=== PATIENT | female | born 1955 | race Caucasian/White ===

== ENCOUNTER → 2018-01-18 11:49 | Outpatient (CLI) | payer OTHER, SELFPAY ==
--- NOTE | 2018-01-18 11:51 | DI.MG.S_ITS ---
BILATERAL DIGITAL SCREENING MAMMOGRAM 3D/2D WITH CAD: 01/18/2018 CLINICAL: Routine screening. Family history of breast cancer. Comparison is made to exams dated: 04/30/2016 mammogram, 04/06/2015 mammogram - [facility], and 03/08/2014 mammogram - [facility]. The tissue of both breasts is heterogeneously dense. This may lower the sensitivity of mammography. Current study was also evaluated with a Computer Aided Detection (CAD) system. No significant masses, calcifications, or other findings are seen in either breast. There has been no significant interval change. IMPRESSION: NEGATIVE There is no mammographic evidence of malignancy. A 1 year screening mammogram is recommended. This exam was interpreted at Station ID: [id number]. NOTE: For mammograms, a report in lay terms will be sent to the patient. Approximately 15% of breast malignancies will not be visualized mammographically. In the management of a palpable breast mass, a negative mammogram must not discourage biopsy of a clinically suspicious lesion. Electronically Signed By: Hailee vaz/josé luis:01/20/2018 11:13:38 letter sent: Normal Exam ACR BI-RADS Category 1: Negative 3341F
== END ==
PROVIDERS: Family Provider Specialist; PCP Specialist; Visit Provider Specialist
DX: Z12.31 Encounter for screening mammogram for malignant neoplasm of breast (principal); Z80.3 Family history of malignant neoplasm of breast
CPT/HCPCS: 77063; 77067

== ENCOUNTER → 2019-02-12 16:00 | Outpatient (CLI) | payer OTHER, SELFPAY ==
--- NOTE | 2019-02-12 | DI.MG.S_ITS ---
BILATERAL DIGITAL SCREENING MAMMOGRAM 3D/2D WITH CAD: 02/12/2019 CLINICAL: Routine screening. Family history of breast cancer. Comparison is made to exams dated: 01/18/2018 mammogram, 04/30/2016 mammogram, and 04/06/2015 mammogram - [facility]. The tissue of both breasts is heterogeneously dense. This may lower the sensitivity of mammography. Current study was also evaluated with a Computer Aided Detection (CAD) system. No significant masses, calcifications, or other findings are seen in either breast. There has been no significant interval change. IMPRESSION: NEGATIVE There is no mammographic evidence of malignancy. A 1 year screening mammogram is recommended. This exam was interpreted at Station ID: [id number]. NOTE: For mammograms, a report in lay terms will be sent to the patient. Approximately 15% of breast malignancies will not be visualized mammographically. In the management of a palpable breast mass, a negative mammogram must not discourage biopsy of a clinically suspicious lesion. Electronically Signed By: Anahi morley/josé luis:02/13/2019 10:42:47 letter sent: Normal Exam ACR BI-RADS Category 1: Negative 3341F
== END ==
PROVIDERS: Family Provider Specialist; PCP Family Medicine; Visit Provider Specialist
DX: Z12.31 Encounter for screening mammogram for malignant neoplasm of breast (principal); Z80.3 Family history of malignant neoplasm of breast
CPT/HCPCS: 77063; 77067

== ENCOUNTER → 2020-07-25 10:10 | Outpatient (CLI) | payer MEDICARE, OTHER, SELFPAY ==
--- NOTE | 2020-07-25 10:12 | DI.MG.S_ITS ---
BILATERAL DIGITAL SCREENING MAMMOGRAM 3D/2D WITH CAD: 07/25/2020 CLINICAL: Routine screening. Comparison is made to exams dated: 07/25/2020 mammogram, 02/12/2019 mammogram, 01/18/2018 mammogram, 04/30/2016 mammogram, and 04/06/2015 mammogram - [facility]. The tissue of both breasts is heterogeneously dense. This may lower the sensitivity of mammography. Current study was also evaluated with a Computer Aided Detection (CAD) system. No significant masses, calcifications, or other findings are seen in either breast. There has been no significant interval change. IMPRESSION: NEGATIVE There is no mammographic evidence of malignancy. A 1 year screening mammogram is recommended. This exam was interpreted at Station ID: [id number]. NOTE: For mammograms, a report in lay terms will be sent to the patient. Approximately 15% of breast malignancies will not be visualized mammographically. In the management of a palpable breast mass, a negative mammogram must not discourage biopsy of a clinically suspicious lesion. Electronically Signed By: Aidan scott/josé luis:07/25/2020 12:45:53 copy to: CHHAYA JUAREZ letter sent: Normal Exam ACR BI-RADS Category 1: Negative 3341F
== END ==
PROVIDERS: Family Provider Specialist; PCP Family Medicine; Referring Provider Family Medicine; Visit Provider Family Medicine
DX: Z12.31 Encounter for screening mammogram for malignant neoplasm of breast (principal)
CPT/HCPCS: 77063; 77067

== ENCOUNTER → 2020-10-04 15:20 | Outpatient (CLI) | payer MEDICARE, OTHER, SELFPAY ==
--- NOTE | 2020-10-04 15:23 | DI.RAD.S_ITS ---
PROCEDURE: XR WRIST LT MIN 3V INDICATIONS: fall TECHNIQUE: For views of the wrist were acquired. COMPARISON: None. FINDINGS: Bones: Minimally displaced, intra-articular distal radius fracture. Scaphoid view: Scaphoid is intact. Soft tissues: No suspicious soft tissue calcifications. IMPRESSION: Intra-articular distal radius fracture Dictated by: Marilyn Turk MD, PhD on 10/04/2020 at 16:44 Approved by: Marilyn Turk MD, PhD on 10/04/2020 at 16:44
--- NOTE | 2020-10-04 15:23 | DI.RAD.S_ITS ---
PROCEDURE: XR HAND LT MIN 3V INDICATIONS: fall TECHNIQUE: 3 views of the hand(s) acquired. COMPARISON: None. FINDINGS: Bones: Minimally displaced, intra-articular fracture of the distal radius. Carpal bones are normally aligned. No suspicious bony lesions. Soft tissues: No suspicious soft tissue calcifications. IMPRESSION: Minimally displaced, intra-articular distal radius fracture. Dictated by: Marilyn Turk MD, PhD on 10/04/2020 at 16:42 Approved by: Marilyn Turk MD, PhD on 10/04/2020 at 16:43
--- NOTE | 2020-10-04 15:23 | DI.RAD.S_ITS ---
PROCEDURE: XR FOREARM LT 2V INDICATIONS: fall TECHNIQUE: 2 views of the forearm were acquired. COMPARISON: None. FINDINGS: Bones: Minimally displaced distal radius fracture. Soft tissues: No suspicious soft tissue calcifications or masses. IMPRESSION: Distal radius fracture. Dictated by: Marilyn Turk MD, PhD on 10/04/2020 at 16:44 Approved by: Marilyn Turk MD, PhD on 10/04/2020 at 16:45
== END ==
PROVIDERS: Family Provider Specialist; PCP Family Medicine; Referring Provider Physician Assistant; Visit Provider Physician Assistant
DX: S52.572A Other intraarticular fracture of lower end of left radius, initial encounter for closed fracture (principal); R52 Pain, unspecified; W19.XXXA Unspecified fall, initial encounter
CPT/HCPCS: 73090; 73110; 73130

== ENCOUNTER 2020-12-07 13:45 | Outpatient (RCR) | payer MEDICARE, OTHER, SELFPAY ==
--- NOTE | 2020-11-23 16:00 | PT.OIE ---
Current Diagnoses Dizziness and giddiness (11/23/20) Past Medical History (Last Updated 02/03/18 @ 23:02 by Crystal Mak) Chicken pox History of colonoscopy (~2009) Osteopenia (~2007) Postnasal drip Rosacea (~1989) Tinnitus (~2010) Vertigo (~2011) Past Surgical History (Last Updated 02/03/18 @ 23:02 by Crystal Mak) Anesthesia History of colonoscopy (~2009) History of third molar tooth extraction (~1970) History of tonsillectomy (~1966) Visit Care Team Role Provider Type Sarah Jauregui MD Family Provider Physician Primary Care Provider Specialty: Family Practice Address: [address] [place] [address], [id number] Email: [email or web address] Nakul Hall MD Attending Provider Physician Referring Provider Specialty: Ear, Nose, Throat Address: [address] [place] [address], [address] Email: [email or web address] Physical Therapy Initial Evaluation PT-OP-A Visit Information Start: 11/23/20 15:30 Freq: Status: Active Protocol: Document 11/23/20 14:30 DCW (Rec: 11/23/20 15:43 DC [id number]) Out-Patient Physical Therapy Visit Information Visit Information Visit Type Initial Evaluation Visit Start Time 14:30 Visit Stop Time 15:20 Total Visit Minutes 50 Visit Number 1 Number of HANDYMAN Visits 0 Evaluation Information Evaluation Date 11/23/20 PT-OP-B Current Condition Start: 11/23/20 15:30 Freq: Status: Active Protocol: Document 11/23/20 14:30 DCW (Rec: 11/23/20 15:43 DC [id number]) Current Condition History of Current Condition Onset Date 10 year history with recent worsening Current Complaints subjective imbalance History of Current Condition Pt is a 65 year old female s/p ~10 year history of spontaneous imbalance that has been well compensated over the last ten years. Notes that when it first occurred, she was really limited and couldn 't drive for two months. Symptoms gradually improved, but has since had just occasional brief instances of stability. VNG at the time reported some right hypofunction. Recently, on , pt had a fall out hiking (completely unrelated to imbalance, slipped on a wet rock) and broke her left arm. She has had a rough recovery, and was told she may be experiencing CRPS in her arm. She has been very stressed overall, and notes that her symptoms of imbalance have been worse since all this occurred. Pt reports symptoms are typically provoked by fast head movements. Notes she has been out walking trails, but typically uses a trekking pole . Pt notes she has had fairly consistent tinnitus since original episode ten years ago , but it's not too bad. Feels she has had some decreased hearing on her R side, is having an audiogram tomorrow. Prior Treatments and Tests Per notes from Dr Hall, 2010 VNG showed mild R unilateral vestibular weakness Treatment Goals Patient/Caregiver Goals Symptom relief if possible. PT-OP-C Subjective Start: 11/23/20 15:30 Freq: Status: Active Protocol: Document 11/23/20 14:30 DCW (Rec: 11/23/20 15:43 DCW [id number]) OP-PT Subjective Patient Comments Patient Comments I'm not really sure this is even the best time to address this. I'm having a lot of problems with my arm since the fracture. Although maybe then it's the best time to address it, try to decrease my stress . Patient Reported Progress Same Patient Questionnaires Dizziness Handicap Inventory DHI Score 26% PT-OP-D Balance Start: 11/23/20 15:30 Freq: Status: Active Protocol: Document 11/23/20 14:30 DCW (Rec: 11/23/20 15:48 DCW [id number]) OP-PT Balance Assessment Sitting Balance Static Sitting Balance Ability Normal Dynamic Sitting Balance Ability Normal Standing Balance Static Standing Balance Ability Normal Dynamic Standing Balance Ability Normal Device Used None Rangel Fall Scale Copyright Permission PT-OP-O Vestibular Start: 11/23/20 15:30 Freq: Status: Active Protocol: Document 11/23/20 14:30 DCW (Rec: 11/23/20 15:48 DCW [id number]) Vestibular Assessment Screening Tests Vestibular Artery Screen Negative Auditory Tests Pollock Test Within normal limits Rinne Test Negative Air Conduction Results Equal Visual Testing Smooth Pursuits Horizontal WNL Smooth Pursuits Vertical WNL Saccades Horizontal WNL Saccades Vertical WNL Gaze Evoked Nystagmus With Fixation Negative Gaze Evoked Nystagmus Without Fixation Negative Heave Test Positive Left Thrust Head Positive Left Balwinder String Test WNL Convergence Test WNL Head Shake Negative Spontaneous Nystagmus Negative Vestibular Function Tests Fukuda Test WNL CTSIB Position 1 30+ seconds CTSIB Position 2 30+ seconds CTSIB Position 3 30+ seconds PT-OP-Q Treatments Start: 11/23/20 15:30 Freq: Status: Active Protocol: Document 11/23/20 14:30 DCW (Rec: 11/23/20 15:48 DCW [id number]) Neuro Re-Education Treatment Vestibular Rehabilitation Corrective Saccades Details Eyes, then head Distance From Target Arm length Speed as tolerated Position seated X2 Viewing Details Target, head moving opposite directions Distance From Target Arm length Speed as tolerated Position seated X1 Viewing Details Stationary target, moving head Distance From Target Arm length Speed as tolerated Position seated VOR Retraining Details Head and target move together Distance From Target Arm length Speed as tolerated Position seated PT-OP-T Assessment and Plan Start: 11/23/20 15:30 Freq: Status: Active Protocol: Document 11/23/20 14:30 DCW (Rec: 11/23/20 16:00 DCW [id number]) Physical Therapy Assessment Rehab Potential Rehabilitation Potential Good Evaluation Complexity Number of Personal Factors/Comorbidities 1-2 Number of Body Systems Impaired 3 Clinical Presentation at Evaluation Unstable Impairments Impairments Balance,Vestibular Goals One Impairment Pt scores 26% disability on Dizziness Handicap Inventory Short Term Goal (STG) Pt to score <10% disability on the DHI to show improved confidence and reduced fear of falling. STG Duration 12/23/20 Assessment Summary Assessment Pt presents with signs and symptoms of a well-compensated unilateral vestibular loss. This likely occurred 10.5 years ago when pt's symptoms began, and pt has done very well with adaptation/ compensation ever since. Pt balance currently unremarkable , and vestibular dysfunction appears to be minimal. There have been studies which strongly suggest stress increasing symptoms of prior vestibular loss, and pt admits high level of stress at the moment following her recent arm fracture and complicated recovery, and admits that her imbalance symptoms did begin following her fracture. Pt at this time was very happy to just receive some vestibulo- ocular exercises to work at on her own. Would like to work independently, on exercises and decreasing stress as her arm recovers, but would like to not discharge yet, so she has the option to return for follow-up if she does not progress as well as she would like. One strange result was that per prior VNG, she was diagnosed with right-sided hypofunction, and today her head impulse tests showed some mild left loss, however this may just be normal age-related decline in function. Physical Therapy Plan Frequency and Duration Frequency of Treatment as needed Duration of Treatment Two months Plan of Care Start Date 11/23/20 Plan of Care End Date 01/23/21 Therapeutic Interventions Therapeutic Interventions Balance Training,Canalithic Repositioning,Neuromuscular Re -education,Therapeutic Activities,Therapeutic Exercises,Vestibular Rehabilitation Next Visit Focus/Plan Next Note Type Treatment Note Next Visit Plan Vestibular rehab
--- NOTE | 2020-11-23 16:00 | PT.OPPOC ---
Physical, Occupational & Speech Therapy At [facility] Current Diagnoses Dizziness and giddiness (11/23/20) Visit Care Team Role Provider Type Sarah Jauregui MD Family Provider Physician Primary Care Provider Specialty: Family Practice Address: [address] [place] [address], [address] Email: [email or web address] Nakul Hall MD Attending Provider Physician Referring Provider Specialty: Ear, Nose, Throat Address: [address] [place] [address], [address] Email: [email or web address] Plan Of Care PT-OP-T Assessment and Plan Start: 11/23/20 15:30 Freq: Status: Active Protocol: Document 11/23/20 14:30 DCW (Rec: 11/23/20 16:00 DCW [id number]) Physical Therapy Assessment Rehab Potential Rehabilitation Potential Good Evaluation Complexity Number of Personal Factors/Comorbidities 1-2 Number of Body Systems Impaired 3 Clinical Presentation at Evaluation Unstable Impairments Impairments Balance,Vestibular Goals One Impairment Pt scores 26% disability on Dizziness Handicap Inventory Short Term Goal (STG) Pt to score <10% disability on the DHI to show improved confidence and reduced fear of falling. STG Duration 12/23/20 Assessment Summary Assessment Pt presents with signs and symptoms of a well-compensated unilateral vestibular loss. This likely occurred 10.5 years ago when pt's symptoms began, and pt has done very well with adaptation/ compensation ever since. Pt balance currently unremarkable , and vestibular dysfunction appears to be minimal. There have been studies which strongly suggest stress increasing symptoms of prior vestibular loss, and pt admits high level of stress at the moment following her recent arm fracture and complicated recovery, and admits that her imbalance symptoms did begin following her fracture. Pt at this time was very happy to just receive some vestibulo- ocular exercises to work at on her own. Would like to work independently, on exercises and decreasing stress as her arm recovers, but would like to not discharge yet, so she has the option to return for follow-up if she does not progress as well as she would like. One strange result was that per prior VNG, she was diagnosed with right-sided hypofunction, and today her head impulse tests showed some mild left loss, however this may just be normal age-related decline in function. Physical Therapy Plan Frequency and Duration Frequency of Treatment as needed Duration of Treatment Two months Plan of Care Start Date 11/23/20 Plan of Care End Date 01/23/21 Therapeutic Interventions Therapeutic Interventions Balance Training,Canalithic Repositioning,Neuromuscular Re -education,Therapeutic Activities,Therapeutic Exercises,Vestibular Rehabilitation Next Visit Focus/Plan Next Note Type Treatment Note Next Visit Plan Vestibular rehab Plan of Care Dates Plan of Care Start Date 11/23/20 Plan of Care End Date 01/23/21 Electronically Signed by: Huang Bui, PT 11/23/20 1600 Please Sign and Return: I have reviewed this Plan of Care and certify that the skilled therapy services above are required to meet the patient?s needs. Physician Signature Date Printed Name and Credentials Clinical Instructor Signature Printed Name and Credentials
--- NOTE | 2020-12-07 14:30 | PT.OTN ---
Current Diagnoses Dizziness and giddiness (12/07/20) Physical Therapy Treatment Note PT-OP-A Visit Information Start: 11/23/20 15:30 Freq: Status: Active Protocol: Document 12/07/20 13:45 DCW (Rec: 12/07/20 14:30 DCW [id number]) Out-Patient Physical Therapy Visit Information Visit Information Visit Type Treatment Note Visit Start Time 13:45 Visit Stop Time 14:15 Total Visit Minutes 30 Visit Number 2 Number of REPAIRING CALIBRATOR Visits 0 Evaluation Information Evaluation Date 11/23/20 PT-OP-B Current Condition Start: 11/23/20 15:30 Freq: Status: Active Protocol: Document 11/23/20 14:30 DCW (Rec: 11/23/20 15:43 DCW [id number]) Current Condition History of Current Condition Onset Date 10 year history with recent worsening Current Complaints subjective imbalance History of Current Condition Pt is a 65 year old female s/p ~10 year history of spontaneous imbalance that has been well compensated over the last ten years. Notes that when it first occurred, she was really limited and couldn 't drive for two months. Symptoms gradually improved, but has since had just occasional brief instances of stability. VNG at the time reported some right hypofunction. Recently, on , pt had a fall out hiking (completely unrelated to imbalance, slipped on a wet rock) and broke her left arm. She has had a rough recovery, and was told she may be experiencing CRPS in her arm. She has been very stressed overall, and notes that her symptoms of imbalance have been worse since all this occurred. Pt reports symptoms are typically provoked by fast head movements. Notes she has been out walking trails, but typically uses a trekking pole . Pt notes she has had fairly consistent tinnitus since original episode ten years ago , but it's not too bad. Feels she has had some decreased hearing on her R side, is having an audiogram tomorrow. Prior Treatments and Tests Per notes from Dr Hall, 2010 VNG showed mild R unilateral vestibular weakness Treatment Goals Patient/Caregiver Goals Symptom relief if possible. PT-OP-C Subjective Start: 11/23/20 15:30 Freq: Status: Active Protocol: Document 12/07/20 13:45 DCW (Rec: 12/07/20 14:30 DCW [id number]) OP-PT Subjective Patient Comments Patient Comments Pt suddenly became symptomatic with positional vertigo over the weekend, has been attempting self Erica's with minimal success. PT-OP-D Balance Start: 11/23/20 15:30 Freq: Status: Active Protocol: Document 11/23/20 14:30 DCW (Rec: 11/23/20 15:48 DCW [id number]) OP-PT Balance Assessment Sitting Balance Static Sitting Balance Ability Normal Dynamic Sitting Balance Ability Normal Standing Balance Static Standing Balance Ability Normal Dynamic Standing Balance Ability Normal Device Used None Rangel Fall Scale Copyright Permission PT-OP-O Vestibular Start: 11/23/20 15:30 Freq: Status: Active Protocol: Document 11/23/20 14:30 DCW (Rec: 11/23/20 15:48 DCW [id number]) Vestibular Assessment Screening Tests Vestibular Artery Screen Negative Auditory Tests Pollock Test Within normal limits Rinne Test Negative Air Conduction Results Equal Visual Testing Smooth Pursuits Horizontal WNL Smooth Pursuits Vertical WNL Saccades Horizontal WNL Saccades Vertical WNL Gaze Evoked Nystagmus With Fixation Negative Gaze Evoked Nystagmus Without Fixation Negative Heave Test Positive Left Thrust Head Positive Left Balwinder String Test WNL Convergence Test WNL Head Shake Negative Spontaneous Nystagmus Negative Vestibular Function Tests Fukuda Test WNL CTSIB Position 1 30+ seconds CTSIB Position 2 30+ seconds CTSIB Position 3 30+ seconds PT-OP-Q Treatments Start: 11/23/20 15:30 Freq: Status: Active Protocol: Document 12/07/20 13:45 DCW (Rec: 12/07/20 14:30 DCW [id number]) Self-Care/Home Management Treatment Education Other Education BPPV information, treatment options Canalithic Repositioning BPPV Treatment Erica Reps x1 Comments Modified Erica PT-OP-T Assessment and Plan Start: 11/23/20 15:30 Freq: Status: Active Protocol: Document 12/07/20 13:45 DCW (Rec: 12/07/20 14:30 DCW [id number]) Physical Therapy Assessment Goals One Impairment Pt scores 26% disability on Dizziness Handicap Inventory Short Term Goal (STG) Pt to score <10% disability on the DHI to show improved confidence and reduced fear of falling. STG Duration 12/23/20 Assessment Summary Assessment After presenting two weeks ago with well-compensated unilateral vestibular hypofunction, this past weekend, pt began having symptoms strongly suggestive of BPPV. She had called into the clinic and discussed appropriate treatment with this therapist, and attempted self-Erica. Today's testing was entirely negative for BPPV , so pt may have been successful with her treatment this AM. Spent an extended time period today discussing symptoms and treatment options for BPPV. Pt should continue with HEP exercises for ongoing unilateral hypofunction. Physical Therapy Plan Frequency and Duration Frequency of Treatment as needed Duration of Treatment Two months Plan of Care Start Date 11/23/20 Plan of Care End Date 01/23/21 Therapeutic Interventions Therapeutic Interventions Balance Training,Canalithic Repositioning,Neuromuscular Re -education,Therapeutic Activities,Therapeutic Exercises,Vestibular Rehabilitation Next Visit Focus/Plan Next Note Type Treatment Note Next Visit Plan Vestibular rehab
--- NOTE | 2021-05-25 10:13 | PT.OPDS ---
Current Diagnoses Dizziness and giddiness (12/07/20) Visit Care Team Role Provider Type Sarah Jauregui MD Family Provider Physician Primary Care Provider Specialty: Family Practice Address: [facility], [place], [address] Email: [email or web address] Nakul Hall MD Attending Provider Physician Referring Provider Specialty: Ear, Nose, Throat Address: [address] [place] [address], [address] Email: [email or web address] Visit Number Visit Number 2 Discharge Summary PT-OP-B Current Condition Start: 11/23/20 15:30 Freq: Status: Active Protocol: Document 11/23/20 14:30 DCW (Rec: 11/23/20 15:43 DCW [id number]) Current Condition History of Current Condition Onset Date 10 year history with recent worsening Current Complaints subjective imbalance History of Current Condition Pt is a 65 year old female s/p ~10 year history of spontaneous imbalance that has been well compensated over the last ten years. Notes that when it first occurred, she was really limited and couldn 't drive for two months. Symptoms gradually improved, but has since had just occasional brief instances of stability. VNG at the time reported some right hypofunction. Recently, on , pt had a fall out hiking (completely unrelated to imbalance, slipped on a wet rock) and broke her left arm. She has had a rough recovery, and was told she may be experiencing CRPS in her arm. She has been very stressed overall, and notes that her symptoms of imbalance have been worse since all this occurred. Pt reports symptoms are typically provoked by fast head movements. Notes she has been out walking trails, but typically uses a trekking pole . Pt notes she has had fairly consistent tinnitus since original episode ten years ago , but it's not too bad. Feels she has had some decreased hearing on her R side, is having an audiogram tomorrow. Prior Treatments and Tests Per notes from Dr Hall, 2010 VNG showed mild R unilateral vestibular weakness Treatment Goals Patient/Caregiver Goals Symptom relief if possible. PT-OP-C Subjective Start: 11/23/20 15:30 Freq: Status: Active Protocol: Document 12/07/20 13:45 DCW (Rec: 12/07/20 14:30 DCW [id number]) OP-PT Subjective Patient Comments Patient Comments Pt suddenly became symptomatic with positional vertigo over the weekend, has been attempting self Erica's with minimal success. PT-OP-D Balance Start: 11/23/20 15:30 Freq: Status: Active Protocol: Document 11/23/20 14:30 DCW (Rec: 11/23/20 15:48 DCW [id number]) OP-PT Balance Assessment Sitting Balance Static Sitting Balance Ability Normal Dynamic Sitting Balance Ability Normal Standing Balance Static Standing Balance Ability Normal Dynamic Standing Balance Ability Normal Device Used None Rangel Fall Scale Copyright Permission PT-OP-O Vestibular Start: 11/23/20 15:30 Freq: Status: Active Protocol: Document 11/23/20 14:30 DCW (Rec: 11/23/20 15:48 DCW [id number]) Vestibular Assessment Screening Tests Vestibular Artery Screen Negative Auditory Tests Pollock Test Within normal limits Rinne Test Negative Air Conduction Results Equal Visual Testing Smooth Pursuits Horizontal WNL Smooth Pursuits Vertical WNL Saccades Horizontal WNL Saccades Vertical WNL Gaze Evoked Nystagmus With Fixation Negative Gaze Evoked Nystagmus Without Fixation Negative Heave Test Positive Left Thrust Head Positive Left Balwinder String Test WNL Convergence Test WNL Head Shake Negative Spontaneous Nystagmus Negative Vestibular Function Tests Fukuda Test WNL CTSIB Position 1 30+ seconds CTSIB Position 2 30+ seconds CTSIB Position 3 30+ seconds PT-OP-T Assessment and Plan Start: 11/23/20 15:30 Freq: Status: Active Protocol: Document 05/25/21 10:12 DCW (Rec: 05/25/21 10:13 DCW [id number]) Physical Therapy Assessment Assessment Summary Assessment Pt was to call in as her vestibular sympoms required, however now has not been seen in five months. Pt will be discharged from skilled PT at this time, will require a new referral in order to return Physical Therapy Plan Discharge Physical Therapy Discharge Reasons No Longer Attending PT Next Visit Focus/Plan Next Note Type Discharge Summary
== END 2021-05-29 13:42 ==
LOC: PHYS 13:45
PROVIDERS: Family Provider Family Medicine; PCP Family Medicine; Referring Provider Otolaryngology; Visit Provider Otolaryngology
DX: R42 Dizziness and giddiness (principal)
CPT/HCPCS: 95992; 97112; 97162; 97535

== ENCOUNTER → 2021-09-07 09:30 | Outpatient (CLI) | payer MEDICARE, OTHER, SELFPAY ==
[2021-09-07 10:25] LABS: Add Manual Diff / Slide Review NO; Basophils Absolute Auto 0 /uL (0-100); Basophils Percent Auto 0.7 % (0-2); Eosinophils Absolute Auto 100 /uL (0-450); Eosinophils Percent Auto 1.6 % (2-4); Hematocrit 39.3 % (36-46); Hemoglobin 13.8 g/dL (12.0-16.0); Lymphocytes Absolute Auto 2000 /uL (1100-4500); Lymphocytes Percent Auto 42.7 % (25-40); Mean Corpuscular HGB Conc 35.1 % (30-36); Mean Corpuscular Hemoglobin 34.5 PG (26-34); Mean Corpuscular Volume 98.3 fL (80-100); Monocytes Absolute Auto 500 /uL (0-900); Monocytes Percent Auto 9.6 % (3-14); Neutrophils Absolute Auto 2100 /uL (1500-7000); Neutrophils Percent Auto 45.4 % (50-75); Platelet Count 209 X10^3/uL (150-400); Red Blood Cell Count 3.99 X10^6/uL (4.0-5.2); Red Cell Distribution Width 12.6 % (11.6-14.8); White Blood Cell Count 4.7 X10^3/uL (4.5-11.0)
[2021-09-07 10:33] LABS: Hemoglobin A1C% w Est Avg Glu 5.1 % (4.0-6.0)
[2021-09-07 10:43] LABS: Alanine Aminotransferase 25 IU/L (<35); Albumin 4.3 g/dL (3.5-5.0); Albumin Globulin Ratio 1.5 (1.0-2.8); Alkaline Phosphatase 90 U/L (38-126); Aspartate Aminotransferase 28 IU/L (14-36); BUN Creatinine Ratio 17.1 (6-22); Blood Urea Nitrogen 13 mg/dL (7-17); Calcium 9.7 mg/dL (8.4-10.2); Carbon Dioxide 30 mmol/L (22-32); Chloride 103 mmol/L (98-107); Cholesterol 232 mg/dL (140-199); Estimated Glomerular Filt Rate > 60 mL/min (>60); Globulin 2.8 g/dL (1.7-4.1); Glucose 94 mg/dL (80-110); HDL Cholesterol 86 mg/dL (40-60); HEMOLYSIS < 15 (0-50); LDL Cholesterol Calculated 129 mg/dL (<100); Potassium 4.2 mmol/L (3.4-5.1); Sodium 138 mmol/L (137-145); Total Protein 7.1 g/dL (6.3-8.2); Triglycerides 85 mg/dL (35-150)
[2021-09-07 19:18] LABS: Thyroid Stimulating Hormone 5.59 uIU/mL (0.47-4.68)
== END ==
PROVIDERS: Family Provider Family Medicine; PCP Family Medicine; Referring Provider Physician Assistant; Visit Provider Physician Assistant
DX: G90.519 Complex regional pain syndrome I of unspecified upper limb (principal); Z13.1 Encounter for screening for diabetes mellitus; Z11.59 Encounter for screening for other viral diseases; M85.80 Other specified disorders of bone density and structure, unspecified site; Z13.220 Encounter for screening for lipoid disorders; Z13.6 Encounter for screening for cardiovascular disorders; Z13.0 Encounter for screening for diseases of the blood and blood-forming organs and certain disorders involving the immune mechanism; E55.9 Vitamin D deficiency, unspecified; E78.5 Hyperlipidemia, unspecified
CPT/HCPCS: 36415; 80053; 80061; 82306; 83036; 84443; 85025; 87522

== ENCOUNTER → 2021-11-08 11:46 | Outpatient (CLI) | payer MEDICARE, OTHER, SELFPAY | PROVIDERS: Family Provider Family Medicine; PCP Family Medicine; Referring Provider Physician Assistant; Visit Provider Physician Assistant | DX: M81.0 Age-related osteoporosis without current pathological fracture (principal); Z13.820 Encounter for screening for osteoporosis; S62.109A Fracture of unspecified carpal bone, unspecified wrist, initial encounter for closed fracture; Z78.0 Asymptomatic menopausal state | CPT/HCPCS: 77080 ==

== ENCOUNTER → 2022-01-17 12:56 | Outpatient (CLI) | payer MEDICARE, OTHER, SELFPAY ==
--- NOTE | 2022-01-17 12:57 | DI.MG.S_ITS ---
BILATERAL DIGITAL SCREENING MAMMOGRAM 3D/2D WITH CAD: 01/17/2022 CLINICAL: Routine screening. Family history of breast cancer. Comparison is made to exams dated: 07/25/2020 mammogram, 02/12/2019 mammogram, and 01/18/2018 mammogram - [facility]. Both breasts are heterogeneously dense, which may obscure small masses (category c / 51-75% glandular tissue). Current study was also evaluated with a Computer Aided Detection (CAD) system. No significant masses, calcifications, or other findings are seen in either breast. There has been no significant interval change. IMPRESSION: NEGATIVE There is no mammographic evidence of malignancy. A 1 year screening mammogram is recommended. Based on the Tyrer Cuzick model (a risk assessment model) the patient's lifetime risk is 11.0% and her 10 year risk is 5.8%. According to the ACR, ACS, and NCCN guidelines, an annual breast MRI exam along with mammogram is recommended if the patient's lifetime risk is 20% or greater. This exam was interpreted at Station ID: [id number]. NOTE: For mammograms, a report in lay terms will be sent to the patient. Approximately 15% of breast malignancies will not be visualized mammographically. In the management of a palpable breast mass, a negative mammogram must not discourage biopsy of a clinically suspicious lesion. Electronically Signed By: Hailee vaz/josé luis:01/17/2022 16:44:20 copy to: CHHAYA JUAREZ letter sent: Normal Exam ACR BI-RADS Category 1: Negative 3341F
== END ==
PROVIDERS: Family Provider Family Medicine; PCP Family Medicine; Referring Provider Family Medicine; Visit Provider Family Medicine
DX: Z12.31 Encounter for screening mammogram for malignant neoplasm of breast (principal); Z80.3 Family history of malignant neoplasm of breast
CPT/HCPCS: 77063; 77067

== ENCOUNTER → 2022-02-01 14:09 | Outpatient (CLI) | payer MEDICARE, OTHER, SELFPAY ==
[2022-02-01 15:56] LABS: Alkaline Phosphatase 97 U/L (38-126); Phosphorous 3.3 mg/dL (2.8-4.1)
[2022-02-01 16:13] LABS: Free T4, Direct Thyroxine 1.27 ng/dL (0.78-2.19)
[2022-02-02 08:22] LABS: Thyroid Peroxidase Antibodies 220 IU/mL (0-34)
[2022-02-02 10:32] LABS: Parathyroid Hormone Int 53 pg/mL (15-65)
== END ==
PROVIDERS: Family Provider Family Medicine; PCP Family Medicine; Referring Provider Internal Medicine Endocrinology, Diabetes & Metabolism; Visit Provider Internal Medicine Endocrinology, Diabetes & Metabolism
DX: E03.8 Other specified hypothyroidism (principal); M81.0 Age-related osteoporosis without current pathological fracture
CPT/HCPCS: 36415; 83970; 84075; 84100; 84439; 84443; 86376

== ENCOUNTER → 2022-02-07 12:02 | Outpatient (CLI) | payer MEDICARE, OTHER, SELFPAY ==
[2022-02-08 12:32] LABS: Fecal Immunochemical Test Negative (Negative)
== END ==
PROVIDERS: Physician Assistant; Family Provider Family Medicine; PCP Family Medicine; Referring Provider Family Medicine; Visit Provider Family Medicine
DX: Z12.11 Encounter for screening for malignant neoplasm of colon (principal)
CPT/HCPCS: 82274

== ENCOUNTER → 2022-09-26 08:36 | Outpatient (CLI) | payer MEDICARE, OTHER, SELFPAY ==
[2022-09-26 10:03] LABS: Alanine Aminotransferase 15 IU/L (<35); Albumin 4.2 g/dL (3.5-5.0); Albumin Globulin Ratio 1.3 (1.0-2.8); Alkaline Phosphatase 85 U/L (38-126); Aspartate Aminotransferase 21 IU/L (14-36); BUN Creatinine Ratio 24.3 (6-22); Bilirubin Total 0.8 mg/dL (0.2-1.3); Blood Urea Nitrogen 18 mg/dL (7-17); Calcium 9.5 mg/dL (8.4-10.2); Carbon Dioxide 27 mmol/L (22-32); Chloride 104 mmol/L (98-107); Estimated Glomerular Filt Rate > 60 mL/min (>60); Globulin 3.2 g/dL (1.7-4.1); Glucose 96 mg/dL (80-110); HEMOLYSIS < 15 (0-50); Potassium 3.7 mmol/L (3.4-5.1); Sodium 138 mmol/L (137-145); Total Protein 7.4 g/dL (6.3-8.2)
[2022-09-26 10:08] LABS: High Sensitivity CRP - Cardiac 1.6 mg/L (1.0-3.0)
[2022-09-26 10:13] LABS: Vitamin D 25 Hydroxy (D3) 59.4 ng/mL (30.0-100.0)
[2022-09-26 10:24] LABS: Free T3, Triiodothyronine Free 4.32 pg/mL (2.77-5.27)
[2022-09-26 10:33] LABS: Add Manual Diff / Slide Review NO; Basophils Absolute Auto 0 /uL (0-100); Basophils Percent Auto 0.5 % (0-2); Eosinophils Absolute Auto 100 /uL (0-450); Eosinophils Percent Auto 1.4 % (2-4); Hematocrit 38.7 % (36-46); Hemoglobin 13.5 g/dL (12.0-16.0); Lymphocytes Absolute Auto 2000 /uL (1100-4500); Lymphocytes Percent Auto 46.3 % (25-40); Mean Corpuscular HGB Conc 34.9 % (30-36); Mean Corpuscular Hemoglobin 34.2 PG (26-34); Mean Corpuscular Volume 98.1 fL (80-100); Monocytes Absolute Auto 400 /uL (0-900); Monocytes Percent Auto 10.2 % (3-14); Neutrophils Absolute Auto 1800 /uL (1500-7000); Neutrophils Percent Auto 41.6 % (50-75); Platelet Count 179 X10^3/uL (150-400); Red Blood Cell Count 3.94 X10^6/uL (4.0-5.2); Red Cell Distribution Width 12.5 % (11.6-14.8); White Blood Cell Count 4.3 X10^3/uL (4.5-11.0)
[2022-09-26 10:34] LABS: Estradiol, Total 16.8 pg/mL
[2022-09-26 10:37] LABS: Thyroid Stimulating Hormone 6.43 uIU/mL (0.47-4.68)
[2022-09-26 22:30] LABS: Homocysteine 12.7 umol/L (0.0-17.2); Thyroid Peroxidase Antibodies 216 IU/mL (0-34)
[2022-09-27 19:09] LABS: Deamidated Gliadin Ab IgA 4 units (0-19); Deamidated Gliadin Ab IgG 4 units (0-19); Immunoglobulin A,Qn 163 mg/dL (87-352); t-Transglutaminase IgA <2 U/mL (0-3)
[2022-10-01 01:16] LABS: C-Telopeptide, Serum 514 pg/mL (.)
== END ==
PROVIDERS: Family Provider Family Medicine; PCP Family Medicine; Referring Provider Internal Medicine Endocrinology, Diabetes & Metabolism; Visit Provider Internal Medicine Endocrinology, Diabetes & Metabolism
DX: M81.0 Age-related osteoporosis without current pathological fracture (principal); D64.9 Anemia, unspecified; E78.5 Hyperlipidemia, unspecified; E55.9 Vitamin D deficiency, unspecified; E03.9 Hypothyroidism, unspecified
CPT/HCPCS: 36415; 80053; 82306; 82523; 82627; 82670; 82784; 83090; 83516; 84439; 84443; 84481; 85025; 86140; 86376

== ENCOUNTER → 2022-11-02 09:46 | Outpatient (CLI) | payer MEDICARE, OTHER, SELFPAY ==
[2022-11-02 11:42] LABS: Calcium 24 Hour Urine 224 mg/day (100-300); Calcium Urine Random 10.4 mg/dL; Collection Time Urine 24 Hours; Total Volume Urine 2150 mL
== END ==
PROVIDERS: Family Provider Family Medicine; PCP Family Medicine; Referring Provider Family Medicine; Visit Provider Family Medicine
DX: M81.0 Age-related osteoporosis without current pathological fracture (principal)
CPT/HCPCS: 82340

== ENCOUNTER → 2022-12-21 | Outpatient (CLI) | payer MEDICARE, OTHER, SELFPAY ==
--- NOTE | 2022-12-21 12:13 | DI.RAD.S_ITS ---
Bone Density Report Name: SOCO SOLORIO V Age: 67 Sex: Female Ethnicity: White Date of : 1955 Indication: postmenopausal osteoporosis; monitoring treatment; Referring Provider: DAYANARA BYRD Study: Bone densitometry was performed. Exam Date: December 21, 2022 Accession number: [id number] Bone Density: Region BMD T-score Z-score Classification AP Spine(L1, L2, L4) 0.628 -3.7 -1.7 Osteoporosis Femoral Neck (Left) 0.530 -2.9 -1.2 Osteoporosis Total Hip (Left) 0.566 -3.1 -1.7 Osteoporosis Femoral Neck (Right) 0.504 -3.1 -1.4 Osteoporosis Total Hip (Right) 0.577 -3.0 -1.6 Osteoporosis Total Hip Mean 0.572 -3.1 -1.7 Osteoporosis Total Forearm (Left) 0.305 -5.1 -3.3 Osteoporosis 1/3 Forearm (Left) 0.382 -5.2 -3.3 Osteoporosis UD Forearm (Left) 0.257 -3.2 -1.9 Osteoporosis World Health Organization criteria for BMD impression classify patients as: Normal (T-score at or above -1.0), Osteopenia (T-score between -1.0 and -2.5), or Osteoporosis (T-score at or below -2.5). 10-year Fracture Risk: FRAX not reported because: Some T-score for Spine Total or Hip Total or Femoral Neck at or below -2.5 Treated for osteoporosis Previous Exams: -- Region Exam Age BMD T-score BMD Change BMD Change Date g/cm2 vs Baseline vs Previous -- AP Spine (L1-L2,L4) 12/21/2022 67 0.628 -3.7 0.023 (3.8%)* 0.023 (3.8%)* 11/08/2021 66 0.605 -3.9 Total Hip(Left) 12/21/2022 67 0.566 -3.1 -0.025 (-4.3%) -0.025 (-4.3%) 11/08/2021 66 0.592 -2.9 Total Hip(Right) 12/21/2022 67 0.577 -3.0 -0.004 (-0.7%) -0.004 (-0.7%) 11/08/2021 66 0.582 -3.0 -- *Denotes significance at 95% confidence level, LSC for AP Spine = 0.022 g/cm2, LSC for Total Hip = 0.027 g/cm2 Impression: The patient has osteoporosis, based on the Total Spine T-score. No significant bone loss was observed. Discussion: PATIENT UNDER TREATMENT WITH NO SIGNIFICANT BMD LOSS SINCE LAST EXAM. In an untreated patient, BMD typically declines with age. A lack of decline or gain is usually a sign that treatment is efficacious and fracture risk is reduced. It is important to ask patients whether they are taking their medications and to encourage continued and appropriate compliance with their osteoporosis therapies to reduce fracture risk. It is also important to review their risk factors and encourage appropriate calcium and vitamin D intakes, exercise, fall prevention and other lifestyle measures. Follow-Up: Consider a repeat BMD and Vertebral Fracture Assessment (VFA) exam in 2 years or sooner if medically necessary, to reassess this patient's status. Reported by: SAMUEL HICKMAN M.D. on 12/21/2022 12:43:00 PM.
== END ==
PROVIDERS: Family Provider Family Medicine; PCP Family Medicine; Referring Provider Family Medicine; Visit Provider Family Medicine
DX: M81.0 Age-related osteoporosis without current pathological fracture (principal); E55.9 Vitamin D deficiency, unspecified
CPT/HCPCS: 77080; 77081

== ENCOUNTER → 2023-03-21 14:00 | Outpatient (CLI) | payer MEDICARE, OTHER, SELFPAY ==
--- NOTE | 2023-03-21 | DI.MG.S_ITS ---
BILATERAL DIGITAL SCREENING MAMMOGRAM 3D/2D WITH CAD: 03/21/2023 CLINICAL: Routine screening. Family history of breast cancer. Comparison is made to exams dated: 01/17/2022 mammogram, 07/25/2020 mammogram, and 02/12/2019 mammogram - [facility]. Both breasts are heterogeneously dense, which may obscure small masses (category c / 51-75% glandular tissue). Current study was also evaluated with a Computer Aided Detection (CAD) system. No significant masses, calcifications, or other findings are seen in either breast. There has been no significant interval change. IMPRESSION: NEGATIVE There is no mammographic evidence of malignancy. A 1 year screening mammogram is recommended. Based on the Tyrer Cuzick model (a risk assessment model) the patient's lifetime risk is 10.4% and her 10 year risk is 5.8%. According to the ACR, ACS, and NCCN guidelines, an annual breast MRI exam along with mammogram is recommended if the patient's lifetime risk is 20% or greater. This exam was interpreted at Station ID: [id number]. NOTE: For mammograms, a report in lay terms will be sent to the patient. Approximately 15% of breast malignancies will not be visualized mammographically. In the management of a palpable breast mass, a negative mammogram must not discourage biopsy of a clinically suspicious lesion. Electronically Signed By: Aidan scott/josé luis:03/21/2023 17:15:20 copy to: CHHAYA JUAREZ letter sent: Normal Exam ACR BI-RADS Category 1: Negative 3341F
== END ==
PROVIDERS: Family Provider Family Medicine; PCP Family Medicine; Referring Provider Family Medicine; Visit Provider Family Medicine
DX: Z12.31 Encounter for screening mammogram for malignant neoplasm of breast (principal); Z80.3 Family history of malignant neoplasm of breast
CPT/HCPCS: 77063; 77067

== ENCOUNTER → 2023-07-11 09:32 | Outpatient (CLI) | payer MEDICARE, OTHER, SELFPAY ==
[2023-07-11 10:27] LABS: Add Manual Diff / Slide Review NO; Basophils Absolute Auto 0 /uL (0-100); Basophils Percent Auto 0.5 % (0-2); Eosinophils Absolute Auto 100 /uL (0-450); Eosinophils Percent Auto 2.1 % (2-4); Hematocrit 38.1 % (36-46); Hemoglobin 13.1 g/dL (12.0-16.0); Lymphocytes Absolute Auto 1800 /uL (1100-4500); Lymphocytes Percent Auto 43.4 % (25-40); Mean Corpuscular HGB Conc 34.5 % (30-36); Mean Corpuscular Hemoglobin 34.5 PG (26-34); Mean Corpuscular Volume 99.8 fL (80-100); Monocytes Absolute Auto 400 /uL (0-900); Monocytes Percent Auto 10.5 % (3-14); Neutrophils Absolute Auto 1800 /uL (1500-7000); Neutrophils Percent Auto 43.5 % (50-75); Platelet Count 181 X10^3/uL (150-400); Red Blood Cell Count 3.81 X10^6/uL (4.0-5.2); Red Cell Distribution Width 12.9 % (11.6-14.8); White Blood Cell Count 4.1 X10^3/uL (4.5-11.0)
[2023-07-11 11:13] LABS: Alanine Aminotransferase 16 IU/L (<35); Albumin 4.3 g/dL (3.5-5.0); Albumin Globulin Ratio 1.6 (1.0-2.8); Alkaline Phosphatase 85 U/L (38-126); Aspartate Aminotransferase 23 IU/L (14-36); BUN Creatinine Ratio 22.5 (6-22); Bilirubin Total 0.7 mg/dL (0.2-1.3); Blood Urea Nitrogen 16 mg/dL (7-17); Calcium 9.9 mg/dL (8.4-10.2); Carbon Dioxide 27 mmol/L (22-32); Chloride 105 mmol/L (98-107); Cholesterol 238 mg/dL (140-199); Estimated Glomerular Filt Rate > 60 mL/min (>60); Globulin 2.7 g/dL (1.7-4.1); Glucose 94 mg/dL (80-110); HDL Cholesterol 79 mg/dL (40-60); HEMOLYSIS < 15 (0-50); LDL Cholesterol Calculated 141 mg/dL (<100); Potassium 4.2 mmol/L (3.4-5.1); Sodium 137 mmol/L (137-145); Triglycerides 91 mg/dL (35-150)
[2023-07-11 11:40] LABS: TSH w/ Reflex to FT4 2.92 uIU/mL (0.47-4.68)
== END ==
LOC: LAB 09:35
PROVIDERS: Family Provider Family Medicine; PCP Family Medicine; Referring Provider Family Medicine; Visit Provider Family Medicine
DX: E55.9 Vitamin D deficiency, unspecified (principal); E78.5 Hyperlipidemia, unspecified; D64.9 Anemia, unspecified; R53.83 Other fatigue; E03.9 Hypothyroidism, unspecified
CPT/HCPCS: 36415; 80053; 80061; 84443; 85025

== ENCOUNTER → 2023-07-17 10:11 | Outpatient (CLI) | payer MEDICARE, OTHER, SELFPAY ==
[2023-07-17 10:58] LABS: Hemoglobin A1C% w Est Avg Glu 5.2 % (4.0-6.0)
[2023-07-17 11:28] LABS: Free T4, Direct Thyroxine 1.27 ng/dL (0.78-2.19)
[2023-07-17 11:43] LABS: Ferritin 43 ng/mL (11-264)
[2023-07-17 12:14] LABS: Folate > 20.0 ng/mL (2.76-20.0); Vitamin B12 868 pg/mL (239-931)
== END ==
LOC: LAB 10:12
PROVIDERS: Family Provider Family Medicine; PCP Family Medicine; Referring Provider Family Medicine; Visit Provider Family Medicine
DX: M81.0 Age-related osteoporosis without current pathological fracture (principal); Z79.899 Other long term (current) drug therapy
CPT/HCPCS: 36415; 82607; 82728; 82746; 83036; 84439

== ENCOUNTER → 2024-03-04 08:49 | Outpatient (CLI) | payer MEDICARE, OTHER, SELFPAY ==
[2024-03-04 09:46] LABS: Add Manual Diff / Slide Review NO; Basophils Absolute Auto 0 /uL (0-100); Basophils Percent Auto 0.7 % (0-2); Eosinophils Absolute Auto 200 /uL (0-450); Eosinophils Percent Auto 4.4 % (2-4); Hematocrit 38.3 % (36-46); Hemoglobin 13.2 g/dL (12.0-16.0); Lymphocytes Absolute Auto 1400 /uL (1100-4500); Lymphocytes Percent Auto 34.6 % (25-40); Mean Corpuscular HGB Conc 34.5 % (30-36); Mean Corpuscular Hemoglobin 33.8 PG (26-34); Monocytes Absolute Auto 600 /uL (0-900); Monocytes Percent Auto 14.1 % (3-14); Neutrophils Absolute Auto 1900 /uL (1500-7000); Neutrophils Percent Auto 46.2 % (50-75); Platelet Count 222 X10^3/uL (150-400); Red Blood Cell Count 3.91 X10^6/uL (4.0-5.2); Red Cell Distribution Width 12.4 % (11.6-14.8); White Blood Cell Count 4.1 X10^3/uL (4.5-11.0)
[2024-03-04 10:09] LABS: Alanine Aminotransferase 15 IU/L (<35); Albumin 3.8 g/dL (3.5-5.0); Albumin Globulin Ratio 1.2 (1.0-2.8); Alkaline Phosphatase 85 U/L (38-126); Aspartate Aminotransferase 25 IU/L (14-36); BUN Creatinine Ratio 19.8 (6-22); Bilirubin Total 0.9 mg/dL (0.2-1.3); Blood Urea Nitrogen 18 mg/dL (7-17); Calcium 9.8 mg/dL (8.4-10.2); Carbon Dioxide 30 mmol/L (22-32); Chloride 103 mmol/L (98-107); Estimated Glomerular Filt Rate > 60 mL/min (>60); Globulin 3.1 g/dL (1.7-4.1); Glucose 102 mg/dL (80-110); HEMOLYSIS < 15 (0-50); Potassium 4.1 mmol/L (3.4-5.1); Sodium 135 mmol/L (137-145); Total Protein 6.9 g/dL (6.3-8.2)
[2024-03-04 10:12] LABS: High Sensitivity CRP - Cardiac 3.1 mg/L (1.0-3.0)
[2024-03-04 10:40] LABS: Thyroid Stimulating Hormone 3.29 uIU/mL (0.47-4.68)
[2024-03-05 03:36] LABS: Homocysteine 8.8 umol/L (0.0-17.2)
[2024-03-05 07:36] LABS: Thyroid Peroxidase Antibodies 148 IU/mL (0-34)
[2024-03-05 09:11] LABS: Parathyroid Hormone Int 32 pg/mL (15-65)
== END ==
PROVIDERS: Family Provider Family Medicine; PCP Family Medicine; Referring Provider Family Medicine; Visit Provider Family Medicine
DX: E55.9 Vitamin D deficiency, unspecified (principal); M81.0 Age-related osteoporosis without current pathological fracture; E03.9 Hypothyroidism, unspecified
CPT/HCPCS: 36415; 80053; 82306; 83090; 83970; 84443; 85025; 86140; 86376

== ENCOUNTER → 2024-03-11 09:01 | Outpatient (CLI) | payer MEDICARE, OTHER, SELFPAY ==
[2024-03-11 09:56] LABS: Hemoglobin A1C% w Est Avg Glu 5.1 % (4.0-6.0)
[2024-03-11 10:18] LABS: Cholesterol 252 mg/dL (140-199); HDL Cholesterol 72 mg/dL (40-60); LDL Cholesterol Calculated 157 mg/dL (<100); Triglycerides 115 mg/dL (35-150)
[2024-03-12 07:08] LABS: Insulin Level Total 7.6 uIU/mL (2.6-24.9)
[2024-03-12 10:36] LABS: Fecal Immunochemical Test Negative (Negative)
== END ==
PROVIDERS: Family Provider Family Medicine; PCP Family Medicine; Referring Provider Family Medicine; Visit Provider Family Medicine
DX: Z12.11 Encounter for screening for malignant neoplasm of colon (principal); R73.9 Hyperglycemia, unspecified; E78.5 Hyperlipidemia, unspecified
CPT/HCPCS: 36415; 80061; 82274; 83036; 83525

== ENCOUNTER → 2024-10-26 15:14 | Outpatient (CLI) | payer MEDICARE, OTHER, SELFPAY ==
--- NOTE | 2024-10-26 15:15 | DI.MG.S_ITS ---
MM screening mammo BI: 10/26/2024. BI-RADS: 1 CLINICAL: 69-year old female for bilateral screening mammogram. Tyrer-Cuzick lifetime risk of 4.1%. No personal or first-degree family history of breast cancer. Current reported family history of breast cancer: maternal aunt's daughter. PRIOR EXAMS 03/21/2023, 01/17/2022, 07/25/2020, 02/12/2019, MAMMOGRAPHY TECHNIQUE: 2D and 3D (tomosynthesis) digital mammographic views obtained, with additional images as needed for full coverage. Current study was also evaluated with a Computer Aided Detection (CAD) system. DENSITY B. There are scattered areas of fibroglandular density. MAMMOGRAPHY FINDINGS Bilateral: No suspicious mass, asymmetry, microcalcification, or other abnormality seen. No significant change from comparison. IMPRESSION: * No evidence of malignancy. RECOMMENDATIONS Bilateral * Annual screening mammography. OVERALL ASSESSMENT CATEGORY BI-RADS-1: Negative. The [employer] recommends annual screening mammography beginning at age 40 for women with average risk of breast cancer. ELECTRONICALLY SIGNED: Anahi Durham M.D. on 10/27/2024 at 08:44:21 AM PT Interpreting Station ID: [id number]
== END ==
LOC: MAMMO 15:14
PROVIDERS: Family Provider Family Medicine; PCP Family Medicine; Referring Provider Family Medicine; Visit Provider Family Medicine
DX: Z12.31 Encounter for screening mammogram for malignant neoplasm of breast (principal); Z80.3 Family history of malignant neoplasm of breast
CPT/HCPCS: 77063; 77067

== ENCOUNTER → 2025-02-05 11:39 | Outpatient (CLI) | payer MEDICARE, OTHER, SELFPAY ==
--- NOTE | 2025-02-05 11:40 | DI.RAD.S_ITS ---
PROCEDURE: XR DEXA AXIAL SKELETON INDICATIONS: osteoporosis COMPARISON: [facility], CR, XR DEXA AXIAL SKELETON, 12/21/2022, 12:25. FINDINGS: Lumbar Spine (L1-2 and four): Bone mineral density 0.585 g/cm2, T score -4.1, osteoporosis, change from previous-6.8%, significant. Left Femoral Neck: Bone mineral density 0.504 g/cm2, T score -3.1, osteoporosis, change from previous-4.9%. Left Hip: Bone mineral density 0.565 g/cm2, T score -3.1, osteoporosis, change from previous 0.3%. Left Forearm: Bone mineral density 0.391 g/cm2, T score -5.0, osteoporosis, change from previous 2.5%. Fracture Risk Calculation (when applicable): 10-year fracture risk of a major osteoporotic fracture 29 percent and of a hip fracture 12 percent. (T score greater or equal to -1.0 to: NORMAL) (T score from -1.1 to -2.4: OSTEOPENIA) (T score less than or equal to -2.5: OSTEOPOROSIS) IMPRESSION: Osteoporosis. The patient is at a high risk of fracture. Significant decrease in lumbar spine bone mineral density. Mild change in bone mineral density elsewhere. Follow-up guidelines as follows: Osteoporosis: Consider a repeat DEXA and Vertebral Fracture Assessment (VFA) exam in 2 years or sooner if medically necessary, to reassess this patient's status. Osteopenia: Consider a repeat DEXA in 2-3 years to reassess this patient's status, or if there is a new clinical indication. Normal: Consider a repeat DEXA in 5 years or sooner, or if there is a new clinical indication. All treatment decisions require clinical judgment and consideration of individual patient factors, including patient preferences, comorbidities, previous drug use, risk factors not captured in the FRAX model (e.g., frailty, falls, vitamin D deficiency, increased bone turnover, interval significant decline in bone density ) and possible under- or over-estimation of fracture risk by FRAX. In addition, the NOF Guide recommends that FDA-approved medical therapies be considered in postmenopausal women and men age >= 50 years with a: * Hip or vertebral (clinical or morphometric) fracture * T-score of <=-2.5 at the spine or hip * Ten-year fracture probability by FRAX of >= 3% for hip fracture or >=20% for major osteoporotic fracture. Dictated by: Anahi Durham M.D. on 02/05/2025 at 17:11 Approved by: Anahi Durham M.D. on 02/05/2025 at 17:13
== END ==
PROVIDERS: Family Provider Family Medicine; PCP Family Medicine; Referring Provider Family Medicine; Visit Provider Family Medicine
DX: M81.0 Age-related osteoporosis without current pathological fracture (principal)
CPT/HCPCS: 77080; 77081